=== PATIENT | male | born 1955 | race Caucasian/White ===

== ENCOUNTER 2023-12-29 05:55 | Day surgery (SDC) | payer OTHER ==
[2023-12-24 10:25] LABS: Anion Gap 7.5 mEq/L (5.0-15.0); Potassium 4.5 mEq/L (3.5-5.1)
[2023-12-24 10:26] LABS: Absolute Basophils 0.1 K/uL (0-0.5); Absolute Eosinophils 0.7 K/uL (0-0.5); Absolute Lymphocytes (CBC) 1.8 K/uL (0.7-4.9); Absolute Monocytes 0.6 K/uL (0.1-1.3); Absolute Neutrophil 2.8 K/uL (1.8-8.0); Basophils % 1.1 % (0-1.3); Eosinophils % 11.9 % (0-4.4); Hematocrit 40.1 % (39.6-49.0); Hemoglobin 13.3 g/dL (13.6-17.9); Lymphocytes % 29.4 % (15.3-44.8); MCH 29.3 pg (27.0-35.0); MCHC 33.2 g/dL (32.0-36.0); MCV 88.3 fL (80-100); MPV 7.9 fL (7.6-11.3); Monocytes % 9.8 % (3.3-12.3); Neutrophils % 47.8 % (41.7-73.7); Nucleated Red Blood Cells % 0.1 % (0-0); Platelets 300 thou/uL (152-406); RBC Red Blood Cell Count 4.54 M/uL (4.33-5.43); Red Cell Distribution Width 15.4 % (12.1-15.2)
[2023-12-24 10:29] LABS: PT Prothrombin Time 11.5 SECONDS (9.4-12.5); PTT, Activated Partial Thromb 34.5 SECONDS (24.3-36.9); Protime INR 1.03
[2023-12-29] MEDS: CEFAZOLIN SODIUM 2 GM/VIAL ONE (06:11)
[2023-12-29] MEDS: NA CHLORIDE 0.9% 1,000 ML ONE ×2 (06:14→08:47)
[2023-12-29] MEDS: GABAPENTIN 100 MG CAP ONE (06:39)
[2023-12-29] MEDS: Oxycodone HCl/Acetaminophen 5/325 MG TAB ONE (06:39)
[2023-12-29] MEDS: ACETAMINOPHEN 500 MG TAB ONE (06:39)
[2023-12-29] MEDS: CELECOXIB 100 MG CAPSULE ONE (06:39)
[2023-12-29] MEDS: dexAMETHasone 10 MG/ML VIAL ONE (06:46)
[2023-12-29] MEDS: LIDOCAINE 1% MPF 5 ML VIAL ONE (06:46)
[2023-12-29] MEDS: MIDAZOLAM HCL 2 MG/2 ML INJ ONE (06:47)
[2023-12-29] MEDS: FENTANYL CITR 100 MCG/2 ML ONE (06:47)
[2023-12-29] MEDS: DEXMEDETOMIDINE HCL 200 MCG/2 ML VIAL ONE (06:47)
[2023-12-29] MEDS: EPINEPHRINE 1 MG/ML VIAL ONE (06:47)
[2023-12-29] MEDS: MAGNESIUM SULFATE 1 gm IVPB 1 GM/100 ML BAG IV ONE (06:48)
[2023-12-29] MEDS: BUPIVACAINE 0.25% PF 30 ML VIAL ONE (06:48)
[2023-12-29] MEDS: TRANEXAMIC ACID 1,000 MG/10 ML VIAL IV ONE (07:31)
[2023-12-29] MEDS ORDERED: dexAMETHasone 10 MG/ML VIAL ONE (08:00)
[2023-12-29] MEDS ORDERED: KETOROLAC 30 MG/ML INJ ONE (08:00)
[2023-12-29] MEDS ORDERED: propofoL 200 MG/20 ML VIAL IV ONE (08:00)
[2023-12-29] MEDS ORDERED: ONDANSETRON 4 MG/2 ML VIAL ONE (08:00)
[2023-12-29] MEDS ORDERED: KETAMINE HCL IN 0.9 % NACL 50 MG/5 ML SYRINGE IV ONE (08:00)
[2023-12-29] MEDS ORDERED: LIDOCAINE 2% MPF 5 ML VIAL ONE (08:00)
[2023-12-29] MEDS ORDERED: NS 0.9% VIAL 10 ML ONE (10:04)
[2023-12-29] MEDS ORDERED: Phenylephrine HCl 10 MG/ML 1 ML VIAL ONE (10:09)
[2023-12-29] MEDS ORDERED: HYDROCODONE/APAP 7.5/325 MG TAB PO PRN (10:55)
[2023-12-29] MEDS ORDERED: DOCUSATE NA 100 MG CAP PO PRN (10:55)
[2023-12-29] MEDS ORDERED: ONDANSETRON 4 MG/2 ML VIAL IV PRN (10:55)
[2023-12-29] MEDS ORDERED: ACETAMINOPHEN 325 MG TABLET PO PRN (10:55)
--- NOTE | 2023-12-29 10:55 | P.BOP ---
Preoperative diagnosis: left knee osteoarthritis Postoperative diagnosis: Same Primary procedure: Left total knee arthroplasty R&D Lab Technician: NONE,NONE Estimated blood loss: 50 cc Specimen: Left knee bone remnants, left knee cyst Anesthesia: General Complications: None Implants: Biomet Sarah persona 8 CR femur, F tibia, 12 MC poly, 29 patella Fluids & blood products: Per anesthesia record Transferred to: Recovery Room Condition: Good
[2023-12-29] MEDS ORDERED: TRAMADOL HCL 50 MG TAB PO PRN (10:58)
[2023-12-29 11:30] LABS: Hematocrit 35.5 % (39.6-49.0); Hemoglobin 11.6 g/dL (13.6-17.9)
[2023-12-29] MEDS: ALBUMIN HUM 5% 250 ML IV ONE (12:11)
[2023-12-29] MEDS: NA CHLORIDE 0.9% 500 ML ONE (13:20)
[2023-12-29 14:23] VITALS: BMI 27.0
[2023-12-29] MEDS: PNEUMOCOCCAL VACCINE 0.5 ML IMVAC ONE (15:30)
--- NOTE | 2023-12-29 15:58 | RAD REPORT ---
EXAM: Knee Left 2 View HISTORY: [facility] Post Op COMPARISON: 07/28/2023 TECHNIQUE: 2 views of the left knee were obtained. FINDINGS: Postoperative changes of total knee arthroplasty. Hardware components are in satisfactory a lignment. There is no evidence of acute fracture or dislocation. Postsurgical changes in the soft tissues, with gas and skin sue anteriorly. IMPRESSION: Expected postoperative changes following total left knee arthroplasty.
[2023-12-29] MEDS: CEFAZOLIN SODIUM 2 GM in NA CHLORIDE 0.9% 100 ML IVPB SCH (17:28)
[2023-12-30 05:13] LABS: Hematocrit 36.7 % (39.6-49.0); Hemoglobin 11.8 g/dL (13.6-17.9)
[2023-12-30] MEDS: ENOXAPARIN 30 MG/0.3 ML SQ SCH (05:37)
[2023-12-30] MEDS ORDERED: ENOXAPARIN 30 MG/0.3 ML SQ SCH (06:00)
[2023-12-30] MEDS: HOME MED 1 EA UNK (Simvastatin [Zocor] 10 MG Tablet) PO SCH (08:01)
[2023-12-30] MEDS: PIOGLITAZONE HCL 30 MG PO SCH (08:01)
[2023-12-30] MEDS: CELECOXIB 100 MG CAPSULE PO SCH (08:02)
--- NOTE | 2023-12-30 08:12 | P.OP ---
Preoperative diagnosis: Left knee osteoarthritis Postoperative diagnosis: Same Primary procedure: Left total knee arthroplasty Anesthesia: General Estimated blood loss: 50 cc Specimen: Left knee bone remnants, left knee cyst Findings: See dictation Operative Technique: Indication For Procedure: Alexandre is a 67 year-old male presenting to my clinic with signs, symptoms and x-ray findings consistent with severe left knee osteoarthritis. I discussed with the patient at length risks and benefits associated with operative and nonoperative treatment. He had failed conservative treatment measures and had significant difficulties with ADLs secondary to his pain. We discussed operative treatment and elected to proceed with left total knee arthroplasty. He expressed understanding and elected to proceed with operative treatment. Description Of Procedure: After informed consent was obtained, the patient was identified in the preoperative holding area. The left lower extremity was marked. The patient was then taken to the PACU where he underwent a left lower extremity adductor canal block performed by Anesthesia. He was then taken to the operating room, transferred to the operating table in supine fashion, and placed under general anesthesia. The left lower extremity was then prepped and draped in usual sterile fashion. A time-out was initiated. The correct patient and procedure were confirmed and identified. The patient did receive his preoperative prophylactic antibiotics. The left lower extremity was then exsanguinated and tourniquet was inflated to 300 mmHg. Approximately 15 cm longitudinal incision was made centered over the anterior aspect of the left knee. Dissection was then taken to the extensor mechanism and a medial parapatellar arthrotomy was performed. The patella was everted and dislocated laterally and the knee was flexed and the fat pad was excised. The patient had a cyst just anterior to the lateral meniscus that expressed gelatinous fluid once cut. Thie was excised and sent to pathology. Medial and lateral meniscus were all excised exposing the distal femur. The ACL had been torn in the past and had atrophied and no significant tissue needed to be excised. Excess hypertrophic synovium was also excised within the suprapatellar pouch. The patient had an MRI of his left knee preoperatively for surgical planning and c reation of cutting blocks. The cutting block was then placed over the distal femur and pins were then placed. The distal femoral cutting block was then placed over the pins. An sina wing was then used to ensure proper depth cut and the distal femur was then cut. The chamfer cutting guide was then placed over the distal end of the femur. Anterior, posterior cuts as well as anterior and posterior chamfer cuts were then made again confirming proper depth of the cut using an Sina wing. Excess bone remnants were then sent to pathology for further evaluation. Next, attention was taken to the proximal tibia. A tibial jig and tibial cutting block was then placed on proximal aspect of the left tibia and locked into position. Pins were then placed and alignment guide was then used to confirm proper alignment of the cut and then coronal and sagittal planes. Once this was confirmed, the cutting jig was placed over the pins and the proximal tibia was cut. Sizing trays were then selected and size 12 mm spacer was used and there was good overall balance in flexion and extension. Next, the trial implants were then placed using the size 8 standard CR femur and a size F tibia and an 12 mm MC poly. There was overall good range of motion and good stability. The trial implants were then removed. The wound was then irrigated thoroughly with normal saline and the knee was then injected with 20 cc of 0.5% Marcaine both in the posterior capsule and medial and lateral gutters as well as quadriceps tendon and periosteum. The tibia was then punched. The femur was drilled. The cement was then prepared on the back table. Cement was then placed first on the tibial surface followed by size F tibia. Excess cement was removed with [place] elevators. Size 8 standard CR femur was then placed on the distal femur after cement was placed on the distal femur. Excess cement was then removed and a size 12 mm MC trial poly was then placed. The knee was held in extension as the cement hardened. Undersurface of the patella was prepared debriding osteophytes using rongeurs as well as osteophytes.. Cement was placed on the undersurface of the patella after it was cut and a size 29 patella was placed. Once the cement was hardened, the knee was ranged, there was good overall stability both in flexion, extension and as well as stability with varus and valgus stresses. Trial poly was then removed and a size 12 mm MC poly was then placed and locked into position. The knee was then ranged again. There was good overall range of motion both for flexion and extension with good s tability. The wound was then irrigated again thoroughly with normal saline using pulse lavage. Tourniquet was let down. Hemostasis was achieved using Bovie electrocautery. Extensor mechanism was then approximated using a #1 Vicryl both in interrupted and running fashion. The fascia was then approximated using 0 Vicryl. Subcutaneous tissue was approximated with a 2-0 Vicryl. Skin was approximated using sue. Sterile dressings were applied. The patient was awakened and transferred back in stable condition Complications: None Implants: Biomet Sarah persona 8 CR femur, F tibia, 12 MC poly, 29 patella Fluids & blood products: Per anesthesia record; tourniquet time 78 minutes at 300 mmHg Transferred to: Recovery Room Condition: Good
[2023-12-30 10:53] VITALS: O2SAT 95
--- NOTE | 2023-12-30 12:22 | P.DS ---
Discharge Date: 12/30/23 Disposition: DC HOME/HOME HEALTH CARE Discharge Condition: GOOD Reason for Admission: Status post left total knee arthroplasty Consultations: None Procedures: Left total knee arthroplasty on December 29, 2023 Brief History of Present Illness: Patient underwent left total knee arthroplasty on December 29, 2023 and is admitted to the floor postoperatively for postoperative care. Hospital Course: Patient did well postoperatively. His pain and vital signs were stable while in the hospital. He was given a dose of Lovenox for DVT prophylaxis on the day of discharge. Physical therapy was consulted to aid with mobilization. He will begin Xarelto tomorrow and take once daily for DVT prophylaxis. He will follow- up in 2 weeks for staple removal. Vital Signs/Physical Exam: Temp Pulse Resp BP Pulse Ox 97 F 66 15 109/57 L 95 12/30/23 08:00 12/30/23 08:00 12/30/23 08:00 12/30/23 08:00 12/30/23 08:00 Laboratory Data at Discharge: WBC 6.00 thou/uL (4.3-10.9) 12/24/23 10:03 Hgb 11.8 g/dL (13.6-17.9) L 12/30/23 04:55 Hct 36.7 % (39.6-49.0) L 12/30/23 04:55 Plt Count 300 thou/uL (152-406) 12/24/23 10:03 PT 11.5 SECONDS (9.4-12.5) 12/24/23 10:03 INR 1.03 12/24/23 10:03 APTT 34.5 SECONDS (24.3-36.9) 12/24/23 10:03 Sodium 137 mEq/L (136-145) 12/24/23 10:03 Potassium 4.5 mEq/L (3.5-5.1) 12/24/23 10:03 BUN 15 mg/dL (7-18) 12/24/23 10:03 Creatinine 0.95 mg/dL (0.70-1.30) 12/24/23 10:03 Glucose 100 mg/dL (74-106) 12/24/23 10:03 Home Medications: Pioglitazone HCl [Actos] 30 mg PO DAILY 12/24/23 Simvastatin [Zocor] 10 mg PO DAILY 12/24/23 Hydrocodone 7.5/APAP 325 [[place] 7.5/325 mg*] 1 tab PO Q4H PRN tab 12/30/23 Physician Discharge Instructions: Keep dressing clean, dry and intact. Use bilateral thigh-high CRISTOBAL hose for 2 weeks to aid with swelling. Begin Xarelto tomorrow morning January 08, 2024 with breakfast and take once daily until the prescription has been completed. Follow-up with Dr. Pritchard in 2 weeks for staple removal. Diet: ADA Activity: Weight bearing as tolerated Followup: Jez Pritchard MD [Primary Care Provider] -
[2023-12-30 12:59] VITALS: BP 123/48; TEMP 97.5
== END 2023-12-30 14:15 | disposition home health service (06) ==
LOC: OR 05:55 → 2ND 12:04 → OR 12-30 14:15
PROVIDERS: ADMIT Orthopaedic Surgery Sports Medicine; ATTEND Orthopaedic Surgery Sports Medicine
PROC: 0SRD0J9 Replacement of Left Knee Joint with Synthetic Substitute, Cemented, Open Approach (ICD-10-PCS; principal; 2023-12-29 08:00)
DX: M17.12 Unilateral primary osteoarthritis, left knee (principal); M25.862 Other specified joint disorders, left knee
CPT/HCPCS: 36415; 80048; 82947; 85014; 85018; 85025; 85610; 85730; 88304; 94010; 97116; 97139; 97161; 97530; A4216; C1776; J0171; J1100; J1650; J2001; J2250; J2371; J2405; J2704; J3010; J3475; J7030; J7040; P9045